=== PATIENT | male | born 1930 | race Hispanic/Latino ===

== ENCOUNTER 2016-10-17 09:04 | Outpatient (CLI) | payer MEDICARE, OTHER ==
[2016-10-17 09:57] LABS: Blood Urea Nitrogen 15 mg/dL (9-20)
[2016-10-17] MEDS ORDERED: NACL ONE ×2 (10:23→15:13)
--- NOTE | 2016-10-17 12:03 | Cat Scan Report ---
CTA ABDOMEN AND PELVIS INDICATION: Occlusion and stenosis of bilateral carotid arteries. COMPARISON: 04/18/[address] FINDINGS: Abdomen and pelvis CT performed following IV contrast only. Axial, sagittal and coronal CT reconstructions obtained. LUNG BASES: Mild chronic changes at the lung bases, including lower lobe scarring and few emphysematous changes with the largest right lung base bulla approximately 8 x 3.5 cm. Normal heart size. Few atherosclerotic calcifications. Nonspecific distal esophageal wall prominence/thickening, not excluded for gastroesophageal reflux and/or hiatal hernia, amongst others. ABDOMEN: CTA images demonstrate patent celiac axis and SMA with atherosclerotic calcifications. Nonocclusive thrombus along the SMA also noted proximally. Single bilateral renal arteries with atherosclerotic changes noted. An infrarenal abdominal aortic aneurysm with intramural thrombus noted with an approximately 0.8 cm neck below the left renal artery. AAA measures 4.7 cm AP x 5 cm transverse, axial image 251, series 2 and 9 cm craniocaudal extent. Opacified/patent intrinsic lumen approximately 3.1 x 2.6 cm as on axial image 238. Proximal common iliac arteries non-aneurysmal bilaterally with moderate atherosclerotic changes including wall calcifications and nonocclusive thrombus, right more than left. Similar changes further along the iliac arteries also noted, right more than left. Small splenic calcified granulomas. Otherwise unremarkable liver, spleen, gallbladder, pancreas, adrenals, IVC and kidneys. No hydronephrosis, ascites or size significant adenopathy. Nonopacified GI tract evaluation limited, though grossly nonobstructive. Mild to moderate colonic stool/possible constipation. Few descending colon diverticuli. PELVIS: Non-opacified urinary bladder, seminal vesicles and the prostate within normal limits. Rectosigmoid stool. Mild proximal sigmoid diverticulosis. No free fluid or significant adenopathy. Small bilateral fat containing inguinal hernias proximally noted measuring up to 1.2 cm diameter on the left. No small bowel herniation into the right inguinal canal currently noted. Demineralized bones with multilevel mid spinal degenerative changes, including severe disc narrowing at L2-L3, L4-L5 and L5-S1 with vacuum disc phenomenon. Similar, though lesser changes also noted at T11-T12. Multilevel degenerative spurring, greatest lower lumbar as well. Few small Schmorl's nodes along lower thoracic endplates. CONCLUSION: 1. Infrarenal abdominal aortic aneurysm with intramural thrombus, as described. Multiple atherosclerotic vascular changes noted, as described. 2. Various other incidental findings, including those at the lung bases, old healed granulomatous disease and multilevel spinal degenerative changes, amongst others, as above. Thank you for the opportunity to participate in this patient's care.
== END 2016-10-17 09:05 | disposition home or self-care (01) ==
LOC: CT 09:04
PROVIDERS: ATTEND Surgery Vascular Surgery
DX: I65.23 Occlusion and stenosis of bilateral carotid arteries (principal); I71.4 Abdominal aortic aneurysm, without rupture; J98.4 Other disorders of lung; J43.9 Emphysema, unspecified; I70.0 Atherosclerosis of aorta; K57.30 Diverticulosis of large intestine without perforation or abscess without bleeding; K40.90 Unilateral inguinal hernia, without obstruction or gangrene, not specified as recurrent; M47.896 Other spondylosis, lumbar region; M51.44 Schmorl's nodes, thoracic region
CPT/HCPCS: 36415; 74174; 82565; 84520; Q9967

== ENCOUNTER 2016-12-30 13:33 | Emergency (ER) | payer MEDICARE, OTHER ==
[2016-12-30 14:09] LABS: Basophils % (Auto) 0.8 % (0.0-1.8); Eosinophils % (Auto) 2.1 % (0.0-4.3); Hematocrit 36.3 % (35.5-45.6); Hemoglobin 12.3 gm/dl (11.8-15.2); Mean Corpuscular HGB Conc 34 % (32-34); Mean Corpuscular Hemoglobin 30 pg (28-32); Mean Corpuscular Volume 88 fl (84-94); Platelet Count 272 K/mm3 (140-440); Red Blood Count 4.15 M/mm3 (3.65-5.03); Red Cell Distribution Width 14.6 % (13.2-15.2); White Blood Count 6.2 K/mm3 (4.5-11.0)
--- NOTE | 2016-12-30 14:17 | Emergency Department Report ---
ED Shortness of Breath HPI - General Chief Complaint: Dyspnea/Respdistress Stated Complaint: SOB Time Seen by Provider: 12/30/16 13:42 Source: patient, family, EMS (ems notes not available at time of chart dictation), RN notes reviewed, old records reviewed Mode of arrival: Ambulatory Limitations: No Limitations - History of Present Illness Initial Comments: Primary care Dr.: Dr. Srivastava Pulmonology: Dr. Avila Vascular surgery: Dr. Krause This is an 86-year-old male. The patient is previously unknown to this provider. Patient has a past medical history of AAA, status post recent endovascular repair, carotid stenosis, COPD, prostate cancer, high cholesterol. Patient recently admitted to this hospital for endovascular repair of AAA. Patient reports an uncomplicated surgical course. Patient had endotracheal intubation. Patient presents to the ER today complaint of shortness of breath. His shortness of breath is painless. It is present for 4-5 days. It does not have exacerbating or relieving factors. The patient is not on home oxygen. As per his recent history and physical "he has undergone his cardiac clearance and was given okay to proceed with abdominal aortic aneurysm repair." Patient doesn't recall a recent echocardiogram or stress test. MD Complaint: shortness of breath -: Gradual, days(s) Improves With: nothing Worsens With: nothing Known History Of: COPD Context: other Associated Symptoms: denies other symptoms - Related Data Home Medications Medication Instructions Recorded Confirmed Last Taken Pravastatin Sodium [Pravachol] 20 mg PO DAILY 12/14/16 12/30/16 12/29/16 Tiotropium [Spiriva] 18 mcg IH QDAY 12/14/16 12/30/16 12/29/16 Previous Rx's Medication Instructions Recorded Last Taken Type Clopidogrel [Plavix] 75 mg PO QDAY #30 tablet 12/21/16 12/30/16 Rx Allergies Allergy/AdvReac Type Severity Reaction Status Date / Time No Known Allergies Allergy Unverified 12/14/16 12:17 ED Review of Systems ROS: Stated complaint: SOB Other details as noted in HPI Constitutional: denies: fever, malaise Eyes: denies: vision change Respiratory: shortness of breath. denies: wheezing Cardiovascular: denies: chest pain Gastrointestinal: denies: abdominal pain Genitourinary: as per HPI Musculoskeletal: as per HPI. denies: back pain Skin: denies: lesions Neurological: weakness Psychiatric: as per HPI ED Past Medical Hx - Past Medical History Previous Medical History?: Yes Hx Hypertension: No Hx CVA: No Hx Heart Attack/AMI: No Hx Congestive Heart Failure: No Hx Diabetes: No Hx Deep Vein Thrombosis: No Hx Pulmonary Embolism: No Hx GERD: Yes Hx Liver Disease: No Hx Renal Disease: No Hx of Cancer: No Hx Sickle Cell Disease: No Hx Arthritis: Yes Hx Headaches / Migraines: Yes Hx Seizures: No Hx Kidney Stones: No Hx Psychiatric Treatment: No Hx Asthma: No Hx COPD: Yes (awaiting pulmonary clearance. ) Hx Tuberculosis: No Hx Dementia: No Hx HIV: No - Surgical History Past Surgical History?: No Hx Coronary Stent: No Hx Open Heart Surgery: No Hx Pacemaker: No Hx Internal Defibrillator: No Hx Cholecystectomy: No Hx Appendectomy: Yes Hx Breast Surgery: No - Social History Smoking Status: Never Smoker Substance Use Type: None - Medications Home Medications: Home Medications Medication Instructions Recorded Confirmed Last Taken Type Pravastatin Sodium [Pravachol] 20 mg PO DAILY 12/14/16 12/30/16 12/29/16 History Tiotropium [Spiriva] 18 mcg IH QDAY 12/14/16 12/30/16 12/29/16 History Clopidogrel [Plavix] 75 mg PO QDAY #30 tablet 12/21/16 12/30/16 12/30/16 Rx ED Physical Exam - General Limitations: No Limitations General appearance: alert, in no apparent distress - Head Head exam: Present: atraumatic, normocephalic - Eye Eye exam: Present: normal appearance, EOMI. Absent: nystagmus - ENT ENT exam: Present: normal exam, normal orophraynx, mucous membranes moist, normal external ear exam - Neck Neck exam: Present: normal inspection, full ROM - Respiratory Respiratory exam: Present: normal lung sounds bilaterally. Absent: respiratory distress, wheezes, rales, rhonchi, stridor, chest wall tenderness, accessory muscle use, decreased breath sounds, prolonged expiratory - Cardiovascular Cardiovascular Exam: Present: regular rate, normal rhythm, normal heart sounds. Absent: bradycardia, tachycardia, irregular rhythm, systolic murmur, diastolic murmur, rubs, gallop - GI/Abdominal GI/Abdominal exam: Present: soft, normal bowel sounds. Absent: distended, tenderness, guarding, rebound, rigid - Rectal Rectal exam: Present: deferred - Extremities Exam Extremities exam: Present: normal inspection, full ROM, other (right inguinal regions are minimally tender bilaterally. There is no hematoma. There is no expansile mass. No redness, pus or streaking.). Absent: pedal edema, joint swelling, calf tenderness - Back Exam Back exam: Present: normal inspection, full ROM. Absent: tenderness, CVA tenderness (R), paraspinal tenderness, vertebral tenderness - Neurological Exam Neurological exam: Present: alert, other (Extraocular movements intact. Tongue midline. No facial droop. Facial sensation intact to light touch in the V1, V2 , V3 distribution bilaterally. 5 and 5 strength in 4 extremities.. Sensation is intact to light touch in 4 extremities.). Absent: motor sensory deficit - Psychiatric Psychiatric exam: Present: normal affect, normal mood - Skin Skin exam: Present: warm, dry, intact, normal color. Absent: rash ED Course Vital Signs 12/30/16 12/30/16 12/30/16 13:36 13:43 13:45 Temperature 97.5 F L Pulse Rate 74 66 67 Respiratory 21 16 14 Rate Blood Pressure 132/57 131/60 Blood Pressure 132/57 [Right] O2 Sat by Pulse 98 100 100 Oximetry 12/30/16 12/30/16 12/30/16 14:00 14:01 14:15 Temperature Pulse Rate 76 74 Respiratory 16 16 17 Rate Blood Pressure 115/68 115/68 Blood Pressure [Right] O2 Sat by Pulse 98 100 99 Oximetry 12/30/16 12/30/16 12/30/16 14:30 14:45 15:00 Temperature Pulse Rate 72 87 83 Respiratory 18 16 20 Rate Blood Pressure 125/77 125/77 117/72 Blood Pressure [Right] O2 Sat by Pulse 98 97 97 Oximetry 12/30/16 15:33 Temperature Pulse Rate 80 Respiratory 19 Rate Blood Pressure 117/72 Blood Pressure [Right] O2 Sat by Pulse Oximetry - Reevaluation(s) Reevaluation #1: 12/30/16 14:30 Differential diagnosis, including but not limited to: Chronic COPD, pneumonia, pulmonary embolus, pericardial effusion Assessment and plan: 86-year-old male who reports 4 days of shortness of breath. He is afebrile with reassuring vital signs, saturating at 98-100% on room air. His recent operative report indicates that he had cardiology clearance prior to his surgery. Family indicates that he has follow-up with his vehicle service agent later on this week (Saturday). X-ray of the chest is negative. D-dimer is elevated. CT scan of the chest is ordered and pending. Reevaluation #2: 12/30/16 15:04 Arterial blood gas suggests minimal respiratory alkalosis without hypoxemia. CT scan of the chest is pending. Reevaluation #3: 12/30/16 15:55 Troponin negative 1. Symptoms have been present for 4-5 days. Unlikely to be acute coronary syndrome. Patient had cardiology clearance prior to his surgery. As for the [employer] clinical policy, myocardial infarction may be excluded with 1 set of troponins if symptoms have been present for greater than 8 hours. Patient observed in the ER for a prolonged period Of time, no hypoxia at this time. CT scan of the chest interpretation is pending. Reevaluation #4: 12/30/16 16:09 CT scan demonstrates chronic emphysematous changes. Incidental air noted in the anterior aortic wall. This is most likely related to the patient's recent endovascular procedure. I contacted the patient's covering vascular surgeon, Dr. Burdick, and described the CT scan findings as well as the history and physical. He indicates that small air in the system is a normal finding within 1 month of surgical intervention. Indicates patient can follow up within the week. There is no abdominal tenderness, rebound or guarding, there are no fevers or chills. Therefore, this incidental air noted on CAT scan is most likely related to the patient's recent surgical intervention. Patient will be discharged at this time. Return precautions are reviewed. 12/30/16 16:27 ED Medical Decision Making - Lab Data Result diagrams: 12/30/16 13:54 12/30/16 14:25 Vital Signs 12/30/16 12/30/16 12/30/16 13:36 13:43 13:45 Temperature 97.5 F L Pulse Rate 74 66 67 Respiratory 21 16 14 Rate Blood Pressure 132/57 131/60 Blood Pressure 132/57 [Right] O2 Sat by Pulse 98 100 100 Oximetry 12/30/16 12/30/16 14:00 14:01 Temperature Pulse Rate 76 Respiratory 16 16 Rate Blood Pressure 115/68 Blood Pressure [Right] O2 Sat by Pulse 98 100 Oximetry Lab Results 12/30/16 12/30/16 Range/Units 13:54 13:54 WBC 6.2 (4.5-11.0) K/mm3 RBC 4.15 (3.65-5.03) M/mm3 Hgb 12.3 (11.8-15.2) gm/dl Hct 36.3 (35.5-45.6) % MCV 88 (84-94) fl MCH 30 (28-32) pg MCHC 34 (32-34) % RDW 14.6 (13.2-15.2) % Plt Count 272 (140-440) K/mm3 Lymph % (Auto) 21.6 (13.4-35.0) % [place] % (Auto) 11.6 H (0.0-7.3) % Eos % (Auto) 2.1 (0.0-4.3) % Baso % (Auto) 0.8 (0.0-1.8) % Lymph # 1.3 (1.2-5.4) K/mm3 [place] # 0.7 (0.0-0.8) K/mm3 Eos # 0.1 (0.0-0.4) K/mm3 Baso # 0.0 (0.0-0.1) K/mm3 Seg Neutrophils % 63.9 (40.0-70.0) % Seg Neutrophils # 4.0 (1.8-7.7) K/mm3 PT 13.7 (12.2-14.9) Sec. INR 1.00 (0.87-1.13) APTT 36.9 H (24.2-36.6) Sec. D-Dimer 1161.27 H (0-234) ng/mlDDU - EKG Data -: EKG Interpreted by Me - EKG Data 12/30/16 14:29 12/30/16 14:30 Normal sinus, 66 bpm, normal axis,, premature ventricular contractions, not morphologically consistent with ST elevation myocardial infarction - Radiology Data Radiology results: image reviewed interpreted by me: X-ray of the chest demonstrates hyperinflated lungs, chronic emphysematous changes, no acute disease. CT scan of the chest: Critical care attestation.: If time is entered above; I have spent that time in minutes in the direct care of this critically ill patient, excluding procedure time. ED Disposition Clinical Impression: Dyspnea Disposition: DC-01 TO HOME OR SELFCARE Is pt being admited?: No Does the pt Need Aspirin: No Condition: Stable Additional Instructions: Continue outpatient medications. Follow up with your primary care doctor or vehicle service agent within the next 3-5 days. Return to the ER right away with new pain, worsened pain, migration of pain, fevers, chills, lethargy, irritability, projectile vomiting, change in mental status, inability to tolerate liquid feeds , new, worse and her diffuse symptoms. Follow up with your vascular surgeon within the next 1-2 days. Referrals: MISTY AVILA MD [Staff Physician] - 3-5 Days PRIMARY CARE, [Primary Care Provider] - 3-5 Days CITLALY SRIVASTAVA MD [Staff Physician] - 3-5 Days SKIP KRAUSE MD [Staff Physician] - 3-5 Days
[2016-12-30] MEDS ORDERED: NACL ONE (14:19)
[2016-12-30 14:20] LABS: Partial Thromboplastin Time 36.9 Sec. (24.2-36.6)
[2016-12-30 14:31] LABS: Magnesium 2.2 mg/dL (1.7-2.3)
[2016-12-30 14:34] LABS: Anion Gap 20 mmol/L; BUN/Creatinine Ratio 19; Blood Urea Nitrogen 17 mg/dL (9-20); Calcium 8.6 mg/dL (8.4-10.2); Carbon Dioxide 22 mmol/L (22-30); Chloride 101.9 mmol/L (98-107); Glucose 98 mg/dL (75-100); Potassium 4.4 mmol/L (3.6-5.0); Sodium 139 mmol/L (137-145)
[2016-12-30 14:48] LABS: ISTAT Base Excess -2; ISTAT DEVICE 0; ISTAT PH 7.473 (7.35-7.45); ISTAT PO2 90 (80-105); ISTAT SO2 98; ISTAT TCO2 23
--- NOTE | 2016-12-30 15:06 | XRay Report ---
FINAL REPORT PROCEDURE: XR CHEST 1V AP TECHNIQUE: Chest radiograph anteroposterior view. CPT 47491 HISTORY: Shortness of breath COMPARISON: No prior studies are available for comparison. FINDINGS: Heart: Normal. Mediastinum/Vessels: Normal. Lungs/Pleural space: No infiltrate, effusion, or pneumothorax. Bony thorax: No acute osseous abnormality. Life support devices: None. IMPRESSION: No radiographic evidence of acute cardiopulmonary abnormality.
--- NOTE | 2016-12-30 16:09 | Cat Scan Report ---
FINAL REPORT PROCEDURE: CT ANGIO CHEST TECHNIQUE: Computerized tomographic angiography of the chest was performed after the IV injection of iodinated nonionic contrast including image processing. The image data was postprocessed using 2-dimensional multiplanar reformatted (MPR) and 3-dimensional (MIP and/or volume rendered) techniques. HISTORY: dyspnea COMPARISON: No prior studies are available for comparison. FINDINGS: Heart and pericardium: No pericardial effusion or thickening. Thoracic aorta: There is aortic calcification. Irregular mural plaque is present. No aneurysm or dissection is seen. Pulmonary vasculature: Normal. Lymph nodes: Calcified mediastinal nodes are present. Lungs: Small amount of mucoid material seen in the distal trachea. Calcified granuloma is present in the right lung base. There are emphysematous changes, predominantly involving the lung bases. Parenchymal scarring is also noted. In the medial right lung base there is a focal 6 millimeter nodular opacity, which may be related to scarring or a pulmonary nodule. Pleural space: No effusion, thickening, or pneumothorax. Musculoskeletal structures: Multilevel thoracic spine degenerative changes. Upper abdominal structures: There is a hiatal hernia and likely mild wall thickening of the distal esophagus. There is an abdominal aortic aneurysm with an aortic stent present. There is a dot of air density seen in the anterior aortic wall in the region of the mural plaque just superior to the bifurcation. No obvious surrounding periaortic inflammation is seen. However cannot exclude aortitis.. IMPRESSION: No evidence of pulmonary emboli. The abdomen is not fully imaged, however a dot of air is seen in the mural plaque in the anterior abdominal aortic wall, with no significant periaortic inflammatory changes identified. Although this could be benign, cannot exclude aortitis or even possible aortoenteric fistula. If there has been recent vascular procedure, this may be iatrogenic. Correlate clinically. Other findings as above.
[2016-12-30 17:21] VITALS: BP 117/72
== END 2016-12-30 17:05 | disposition home or self-care (01) ==
LOC: ED 13:33
DX: R06.00 Dyspnea, unspecified (principal); K21.9 Gastro-esophageal reflux disease without esophagitis
CPT/HCPCS: 36415; 71010; 71275; 80048; 82550; 82803; 83735; 83880; 84484; 85025; 85379; 85610; 85730; 93005; 93010; 99285; Q9967